=== PATIENT | male | born 1980 | race Caucasian/White ===

== ENCOUNTER 2024-08-13 08:52 | Emergency (ER) | payer MEDICAID ==
[~2024-08-13] VITALS: Ht 165.1 cm; Wt 60.0 kg
[2024-08-13 09:06] VITALS: O2SAT 100
[2024-08-13 13:43] VITALS: BP 105/61; PULSE 73; RESP 18; TEMP 36.72516; O2SAT 100
== END 2024-08-13 17:41 | disposition home or self-care (01) ==
LOC: ER 08:52
DX: H91.3 Deaf nonspeaking, not elsewhere classified (principal); Z76.0 Encounter for issue of repeat prescription
CPT/HCPCS: 99281; Z7610